=== PATIENT | female | born 1940 | race Caucasian/White ===

== ENCOUNTER 2018-07-27 12:37 | Outpatient (CLI) ==
--- NOTE | 2018-07-27 14:08 | DEXA ---
EXAM: Bone density HISTORY: Postmenopausal female who reports osteoporosis with calcium supplementation and previous le g fracture COMPARISON: None TECHNIQUE: Digital images of the thoracolumbar spine and left hip were provided and calculation of b one density was obtained. FINDINGS: Digital images demonstrate no compression deformities of the thoracolumbar spine. DEXA scan of the lumbar spine is of good quality. The total BMD equals 1.113 grams per square centimeter. T-score is - 0.6 and Z-score of 1.3 DEXA of the left hip was performed and of good quality. Total bone marrow density of 0.889 grams per square centimeter. T score is - 0.9 and Z-score of 1.0. Femoral neck demonstrates a T-score of - 1.7 IMPRESSION: Bone density of the hip and lumbar spine demonstrate focal femoral neck osteopenia in an otherwise normal bone density study by WHO criteria. FRAX calculation tool demonstrates 10-year probability of major osteoporotic fracture of 18.8% and hi p fracture risk of 4.4% T score greater than -1 is normal T score -1 to -2.5 is osteopenia T score less than - 2.5 is osteoporosis
== END 2018-07-27 12:38 | disposition home or self-care (01) ==
LOC: RAD 12:37
PROVIDERS: ATTEND Internal Medicine
DX: M81.0 Age-related osteoporosis without current pathological fracture (principal)

== ENCOUNTER 2018-09-18 14:00 | Outpatient (RCR) ==
--- NOTE | 2018-08-31 13:26 | RS.OPPTEV2 ---
Date of Note: 08/31/18 Visit #: 1 Number of visits approved by Insurance: n/a Date of Evaluation: 08/31/18 Payer Source: MEDICARE Surgery Performed?: Yes (R THR on 04/01/2018) Treatment Diagnosis: aftercare following total hip replacement, balance impaired , muscle weaknes History of Condition/Mechanism of Injury:: pt suffered a fall at her dtr's home in [facility] sustaining R hip fx on 03/31/18 and underwent THR on . Received PT in [place], and did received PT from home health when returned home to [place]. Prior Level of Function.....Patient was independent with: ADL's, Self Care, Caregiving, Ambulation/Mobility, Community Integration/Access Level of Function: prior to hip fx pt was independent with all ADL' s, and amb without AD and cared from adult daughter with special needs. Functional Limitations: Bending, Squatting, Ambulation, Community Access/ Integration Current Subjective/complaints:: pt states that she is hoping to get back to her prior level amb without AD and helping dtr when needed. Treatment Side (optional): Right *Precautions: n/a Medical History Medical History: Hypertension Surgical History: Hip Replacement (04/01/18) Smoking Status: Former smoker Hx Home Medications: lisinopril, amlodopine, atoravastatin Patient's Goals: be able to amb without cane, and be able to perform all normal household activities. Pain Assessment - Pain Description Pain Location: R hip Pain Description: Aching Current Pain Intensity: 1 Other Comments regarding Pain:: states usually pain does not get higher than 1/ 10 Functional Outcome Measure Dynamic Gait: 13 - G Codes & Severity Modifier G Codes & Modifier: n/a Source of G Code score: n/a Observation - Observation Posture: Forward Head, Rounded Shoulders, Increased Thoracic Kyphosis Handedness: Right Gait - Gait Pattern General Gait Pattern Observation: Antalgic Gait, Crouched Gait, Decrease Stride Lngth (R), Decrease Stride Lngth (L) Gait Comments: pt amb with straight cane with flexed posture, decreased step length. Gait speed 0.69 meters/sec. consistent with limited community ambulator General Range of Motion: BUE WFL's. BLE WFL's Muscle Strength: BUE 4/5. LLE 4+/5. RLE atleast 3/5 as noted by ROM, pt would not allow PT to MMT due to fear of pain, states it hurt the last time a PT did that. Hip ROM: Right WFL's Hip Muscle Strength: Left WFL's - Right Hip ROM Right Hip ROM Limitations: Soft Tissue Tightness, Pain, Muscle Weakness - Right Hip Strength Comments: pt would not allow MMT due to fear of pain. Palpation Palpation Findings: Tenderness Comments:: R LE Sensation - Sensation Right Upper Extremity: Intact/Normal Left Upper Extremity: Intact/Normal Right Lower Extremity: Intact/Normal Left Lower Extremity: Intact/Normal Balance - Sitting Balance Static Sitting Balance: Normal Dynamic Sitting Balance: Normal - Standing Balance Static Standing Balance: Good Dynamic Standing Balance: Fair - Comments Balance Assessment Comments: dyn gait index . Gait speed 0.69 meters/sec Interventions - Exercise/Activities/Manual Therapy Exercises/Activities: pt performed isometric hip add, resisted hip abd with green theraband, hip flex, Manual Therapy: n/a HOME EXERCISE PROGRAM: pt given written HEP including isometric hip add, resisted hip abd, seated hip flex. - Charges Timed Code Treatment Minutes: 51 Total Treatment Time: 61 Procedures billed for this date of service:: eval low, ex EVALUATION COMPLEXITY LEVEL EVALUATION COMPLEXITY LEVEL: HISTORY: Low, EXAM OF BODY SYSTEMS: Medium, CLINICAL PRESENTATION: Medium, CLINICAL DECISION MAKING: Low Assessment Assessment: pt presents with decreased balance and strength and requires use of AD for amb. Feel pt would benefit from skilled PT for therex for strengthening, balance, gait training without AD to improve functional mobility and decrease risk of falls. Patient Education: Activity Modification, Education of Plan of Care Rehab Potential: Good Short Term Goals Goal #1: pt independent with initial HEP Goal to be met by: 09/21/18 Goal #2: Improve dyn gait index score > 18/24 Goal to be met by: 09/21/18 Goal #3: Improve strength BLE 4 to 4+/5 Goal to be met by: 09/21/18 Nurse Practitioner Physicians Assistant Goals Goal #1: pt report ability to go for walks in community with her daughter Goal to be met by: 10/12/18 Goal #2: pt amb in dept without AD with no LOB Goal to be met by: 10/12/18 Goal #3: Improve gait speed to > 0.8 meters/sec consistent with community ambulator Goal to be met by: 10/12/18 Plan - Treatment to be Provided Procedures: Therapeutic Exercises, Therapeutic Activity, Manual Therapy, Patient Education Modalities: Cryotherapy, Hot Packs - Treatment Plan Frequency: 2-3x a week Duration: 6 weeks Dates of Nurse Practitioner Physicians Assistant Goals: 10/12/18 Expiration date of current Insurance Approval:: n/a - Treatment Code (1) Aftercare following hip joint replacement surgery Code(s): Z47.1 - AFTERCARE FOLLOWING JOINT REPLACEMENT SURGERY; Z96.649 - PRESENCE OF UNSPECIFIED ARTIFICIAL HIP JOINT Qualifiers: Laterality: right Qualified Code(s): Z47.1 - Aftercare following joint replacement surgery; Z96.641 - Presence of right artificial hip joint (2) Right hip pain Code(s): M25.551 - PAIN IN RIGHT HIP (3) Muscle weakness Code(s): M62.81 - MUSCLE WEAKNESS (GENERALIZED) (4) Gait difficulty Code(s): R26.9 - UNSPECIFIED ABNORMALITIES OF GAIT AND MOBILITY
--- NOTE | 2018-09-04 16:35 | RS.OPPTDN ---
Subjective Date of Note: 09/04/18 Visit #: 2 Number of visits approved by Insurance: [id number] Date of Evaluation: 08/31/18 Payer Source: MEDICARE Treatment Diagnosis: aftercare following total hip replacement, balance impaired , muscle weaknes Current Subjective/complaints:: Patient says she has soreness to the R thigh into the groin and along the incision (tender). Reports she has tried HEP and prefers to use her cane on the R side as this is what she is used to. *Precautions: n/a - Heat/Cryotherapy Treatment: Hot Pack (over the R hip and anterior thigh in supine x 15 mins) Interventions - Exercise/Activities/Manual Therapy Exercises/Activities: Patient receives gentle hamstring and heel cord stretching to the R LE. She begins ball squeezes, isometric hip abd in hooklying, hip abd with knee extended, SAQ 2#, DF with red tband, bilateral SAQ 2# and holding ball for ankle IV all 2x10. Hip flexion in hooklying x 5 limited range. Sitting for LAQ x 10 2#. Began education on diagnosis, anatomy, scar tissue massage, HEP review. Total minutes of Exercise: 25 Manual Therapy: n/a HOME EXERCISE PROGRAM: pt given written HEP including isometric hip add, resisted hip abd, seated hip flex. - Charges Timed Code Treatment Minutes: 25 Total Treatment Time: 40 Procedures billed for this date of service:: hp, ex2 Assessment: Patient amb to dept with SC used on the R side. She is able to donnell all beginning therex, but is tight with gentle HS and heel cord stretches. She should benefit from further progression of therex to the R LE to improve stability and pain. Patient Education: Education of diagnosis, Body/Joint mechanics, Home Exercise Program, Education of Plan of Care Patient demonstrates compliance with HEP?: Yes Short Term Goals Goal #1: pt independent with initial HEP Goal to be met by: 09/21/18 Progress towards Goal:: Progressing Goal #2: Improve dyn gait index score > 18/24 Goal to be met by: 09/21/18 Goal #3: Improve strength BLE 4 to 4+/5 Goal to be met by: 09/21/18 Gore Inserter Goals Goal #1: pt report ability to go for walks in community with her daughter Goal to be met by: 10/12/18 Goal #2: pt amb in dept without AD with no LOB Goal to be met by: 10/12/18 Goal #3: Improve gait speed to > 0.8 meters/sec consistent with community ambulator Goal to be met by: 10/12/18 Plan Dates of Care Home Goals: 10/12/18 Expiration date of current Insurance Approval:: 10/12/18 PLAN: Patient to continue with moist heat to the R LE and therex to strengthen.
--- NOTE | 2018-09-06 16:11 | RS.OPPTDN ---
Subjective Date of Note: 09/06/18 Visit #: 3 Number of visits approved by Insurance: Reassess at 10th Date of Evaluation: 08/31/18 Payer Source: MEDICARE Treatment Diagnosis: aftercare following total hip replacement, balance impaired , muscle weaknes Current Subjective/complaints:: Patient reports her R hip was sore after her session, but she anticipated some fatigue and soreness from beginning new exercises. *Precautions: n/a - Heat/Cryotherapy Treatment: Hot Pack (20 mins over the R hip and thigh in supine) Interventions - Exercise/Activities/Manual Therapy Exercises/Activities: Patient receives gentle hamstring and heel cord stretching to the R LE. She performs ball squeezes, isometric hip abd in hooklying, hip abd with knee extended, hip abd with green tband in hooklying, SAQ 2#, DF with green tband, bilateral SAQ 2# and holding ball for ankle IV all 2x10. Hip flexion in hooklying x 5 limited range. Returned to more gentle HS stretching, Sitting for LAQ x 10 2#. Continued with education on diagnosis, anatomy, HEP review. Total minutes of Exercise: 27 Manual Therapy: n/a HOME EXERCISE PROGRAM: pt given written HEP including isometric hip add, resisted hip abd, seated hip flex. - Charges Timed Code Treatment Minutes: 27 Total Treatment Time: 47 Procedures billed for this date of service:: hp, ex2 Assessment: Patient presents with admission of mild soreness and fatigue following initiation of exercises at previous session. She appears to be motivated and attentive to therex/activity to improve R LE strength. She demo moderate tightness to the hamstrings and piriformis today, but does improve with frequent stretching. Patient Education: Education of diagnosis, Body/Joint mechanics, Home Exercise Program Patient demonstrates compliance with HEP?: Yes Short Term Goals Goal #1: pt independent with initial HEP Goal to be met by: 09/21/18 Progress towards Goal:: Progressing Goal #2: Improve dyn gait index score > 18 Goal to be met by: 09/21/18 Goal #3: Improve strength BLE 4 to 4+/5 Goal to be met by: 09/21/18 Film Library Clerk Goals Goal #1: pt report ability to go for walks in community with her daughter Goal to be met by: 10/12/18 Goal #2: pt amb in dept without AD with no LOB Goal to be met by: 10/12/18 Goal #3: Improve gait speed to > 0.8 meters/sec consistent with community ambulator Goal to be met by: 10/12/18 Plan Dates of Group Home Goals: 10/12/18 Expiration date of current Insurance Approval:: 10/12/18 PLAN: Patient to continue with modalities and therex to the R LE
--- NOTE | 2018-09-11 15:24 | RS.OPPTDN ---
Subjective Date of Note: 09/11/18 Visit #: 4 Number of visits approved by Insurance: Reassess at 10th Date of Evaluation: 08/31/18 Payer Source: MEDICARE Treatment Diagnosis: aftercare following total hip replacement, balance impaired , muscle weaknes Current Subjective/complaints:: Patient c/o R sided back pain today. States she feels therapy is helping, but did notice today she is having more trouble with walking and felt her back mm's were tight. *Precautions: n/a - Heat/Cryotherapy Treatment: Hot Pack (over the R hip, LB, and groin x 15 mins supine) Interventions - Exercise/Activities/Manual Therapy Exercises/Activities: Patient receives gentle hamstring and heel cord stretching to the R LE. She performs ball squeezes, isometric hip abd in hooklying, hip abd with knee extended, hip abd with green tband in hooklying, SAQ 2#, DF with green tband, bilateral SAQ 2# and holding ball for ankle IV all 2x10. QS, Hip flexion in hooklying x 5 limited range. Returned to more gentle HS stretching, Supine for R hip flexor stretch x 25 sec's. Sitting for LAQ x 10 2#. Continued with education on diagnosis, anatomy, HEP review. Total minutes of Exercise: 38 Manual Therapy: n/a HOME EXERCISE PROGRAM: pt given written HEP including isometric hip add, resisted hip abd, seated hip flex. - Charges Timed Code Treatment Minutes: 38 Total Treatment Time: 53 Procedures billed for this date of service:: hp, ex2 Assessment: Patient with increased R sided back pain and increased tightness to the R HS and calf. She is able to perform all therex and new stretch well, but difficulty donnell HS stretching. She is performing HeP. Patient Education: Education of diagnosis, Home Exercise Program, Education of Plan of Care Patient demonstrates compliance with HEP?: Yes Short Term Goals Goal #1: pt independent with initial HEP Goal to be met by: 09/21/18 Progress towards Goal:: Progressing Goal #2: Improve dyn gait index score > 18/24 Goal to be met by: 09/21/18 Goal #3: Improve strength BLE 4 to 4+/5 Goal to be met by: 09/21/18 Progress towards Goal:: Progressing Audit Analyst Goals Goal #1: pt report ability to go for walks in community with her daughter Goal to be met by: 10/12/18 Goal #2: pt amb in dept without AD with no LOB Goal to be met by: 10/12/18 Goal #3: Improve gait speed to > 0.8 meters/sec consistent with community ambulator Goal to be met by: 10/12/18 Plan Dates of Audit Analyst Goals: 10/12/18 Expiration date of current Insurance Approval:: 10/12/18 PLAN: Continue BIW for treatment to the R hip to improve flexibility and strength.
--- NOTE | 2018-09-13 13:24 | RS.CXNS ---
Date of scheduled appointment: 09/13/18 Type: Cancel Reason for Cancel/NS: ill
--- NOTE | 2018-09-18 15:29 | RS.OPPTDN ---
Subjective Date of Note: 09/18/18 Visit #: 5 Number of visits approved by Insurance: 12 Date of Evaluation: 08/31/18 Payer Source: MEDICARE Treatment Diagnosis: aftercare following total hip replacement, balance impaired , muscle weaknes Current Subjective/complaints:: Patient says she has to cancel her next appt due to repeat MD visits and may not be able to come next week. She states her hip is getting stronger and is performing HEP. *Precautions: n/a - Heat/Cryotherapy Treatment: Hot Pack (15 mins to the R hip and groin in supine) Interventions - Exercise/Activities/Manual Therapy Exercises/Activities: Patient continues to receive gentle hamstring and heel cord stretching to the R LE. She performs ball squeezes, hip abd in hooklying with green tband, hip abd with knee extended, SAQ 2 1/2#, DF with green tband, bilateral SAQ 2# and holding ball for ankle IV all 2x10. QS, Hip flexion in hooklying x 5 limited range. Returned to more gentle HS stretching, Sitting for LAQ x 10 2#. Continued with education on diagnosis, anatomy, HEP review. Total minutes of Exercise: 25 Manual Therapy: n/a HOME EXERCISE PROGRAM: pt given written HEP including isometric hip add, resisted hip abd, seated hip flex. - Charges Timed Code Treatment Minutes: 25 Total Treatment Time: 40 Procedures billed for this date of service:: hp, ex2 Assessment: Mild soreness at the R hip to groin, which eases with heat and therex. She continues with very tight R hamstrings and heel cords that should improve with continued assisted stretching. Provided education for pt to perform at home as she may be with-holding therapy next week. Patient Education: Education of diagnosis, Home Exercise Program, Education of Plan of Care Patient demonstrates compliance with HEP?: Yes Short Term Goals Goal #1: pt independent with initial HEP Goal to be met by: 09/21/18 Progress towards Goal:: Progressing Goal #2: Improve dyn gait index score > 18/24 Goal to be met by: 09/21/18 Goal #3: Improve strength BLE 4 to 4+/5 Goal to be met by: 09/21/18 Progress towards Goal:: Progressing Pilot Can Router Goals Goal #1: pt report ability to go for walks in community with her daughter Goal to be met by: 10/12/18 Goal #2: pt amb in dept without AD with no LOB Goal to be met by: 10/12/18 Goal #3: Improve gait speed to > 0.8 meters/sec consistent with community ambulator Goal to be met by: 10/12/18 Plan Dates of Custodial Goals: 10/12/18 Expiration date of current Insurance Approval:: 10/12/18 PLAN: continue BIW for strengthening and flexibility to improve gait regarding the R hip.
== END 2018-09-18 23:59 ==
PROVIDERS: ATTEND Internal Medicine
DX: Z47.1 Aftercare following joint replacement surgery (principal); Z96.641 Presence of right artificial hip joint; M25.551 Pain in right hip; M62.81 Muscle weakness (generalized); R26.9 Unspecified abnormalities of gait and mobility

== ENCOUNTER 2018-10-11 14:00 | Outpatient (RCR) ==
--- NOTE | 2018-09-25 16:53 | RS.OPPTDN ---
Subjective Date of Note: 09/25/18 Visit #: 6 Number of visits approved by Insurance: REassess at 10th Date of Evaluation: 08/31/18 Payer Source: MEDICARE Treatment Diagnosis: aftercare following total hip replacement, balance impaired , muscle weaknes Current Subjective/complaints:: Patient says she is noticing improved strength and reports she was able to lift her R leg into her car without her having to help it up. She says she wants to get as much therapy as possible because she is an active person and does a lot of community/[employer] projects. *Precautions: n/a - Heat/Cryotherapy Treatment: Hot Pack (over the R hip/thigh/groin x 15 mins supine) Interventions - Exercise/Activities/Manual Therapy Exercises/Activities: Patient continues to receive gentle hamstring and heel cord stretching to the R LE. She performs ball squeezes, hip abd in hooklying with green tband, hip abd with knee extended, SAQ 2 1/2#, DF with green tband, bilateral SAQ 2# and holding ball for ankle IV all 2x10. QS, Hip flexion in hooklying x 5 limited range. Heel slides, active hip flexion (with much greater ease 3x5). Returned to more gentle HS stretching, Sitting for LAQ x 10 2#. Ended with stationary bike with prompts to perform and to switch for reverse and forward, assistance for pedals, on and off bike x 4 mins . Continued with education on diagnosis, anatomy, HEP review. Total minutes of Exercise: 31 Manual Therapy: n/a HOME EXERCISE PROGRAM: pt given written HEP including isometric hip add, resisted hip abd, seated hip flex. - Charges Timed Code Treatment Minutes: 31 Total Treatment Time: 46 Procedures billed for this date of service:: hp, ex2 Assessment: Patient able to donnell increased active hip flexion allowing her to lift her leg into the car without difficulty. She is also able to demo improved ease with all other therex demo progression to the bike as well. She amb with observably quicker speed without demo improper safety. Patient Education: Education of diagnosis, Body/Joint mechanics, Home Exercise Program, Home Safety, Activity Modification, Education of Plan of Care Patient demonstrates compliance with HEP?: Yes Short Term Goals Goal #1: pt independent with initial HEP Goal to be met by: 09/21/18 Progress towards Goal:: Progressing Goal #2: Improve dyn gait index score > 18/24 Goal to be met by: 09/21/18 Goal #3: Improve strength BLE 4 to 4+/5 Goal to be met by: 09/21/18 Progress towards Goal:: Progressing Sap Bods Developer Goals Goal #1: pt report ability to go for walks in community with her daughter Goal to be met by: 10/12/18 Goal #2: pt amb in dept without AD with no LOB Goal to be met by: 10/12/18 Goal #3: Improve gait speed to > 0.8 meters/sec consistent with community ambulator Goal to be met by: 10/12/18 Plan Dates of Prison Goals: 10/12/18 Expiration date of current Insurance Approval:: 10/12/18 PLAN: Continue BIW. Progress dynamic activities to amb over, around and other standing therex to improve strength and bal.
--- NOTE | 2018-09-27 15:42 | RS.OPPTDN ---
Subjective Date of Note: 09/27/18 Visit #: 7 Number of visits approved by Insurance: Reassess at 10th Date of Evaluation: 08/31/18 Payer Source: MEDICARE Treatment Diagnosis: aftercare following total hip replacement, balance impaired , muscle weaknes Current Subjective/complaints:: Patient says she was sore after her previous session with beginning bike, but says she is glad she is progressing. She asks many questions about more visits beyond current order, HEP, and state regs on PT after discussion with her daughter. *Precautions: n/a - Heat/Cryotherapy Treatment: Hot Pack (15 mins across the R hip and thigh in supine) Interventions - Exercise/Activities/Manual Therapy Exercises/Activities: Patient continues to receive gentle hamstring and heel cord stretching to the R LE. Patient needed to stop for a few mins due to having cramps into the L foot/toes. She performs ball squeezes, hip abd in hooklying with green tband, hip abd with knee extended, SAQ 2 1/2#, DF with green tband, bilateral SAQ 2# and holding ball for ankle IV all 2x10. Assisted SLR 2x5, QS, Hip flexion in hooklying 2 x 5 limited range. Heel slides. Returned to more gentle HS stretching, Sitting for LAQ x 10 2# and hip flexion no weight. Forward step board to extend the R knee, then step up/down using 1 hand rail for educ on proper sequencing x 5. Side step ups using the R LE to come just to full extension only. Ended with stationary bike with prompts to perform and to switch for reverse and forward, assistance for pedals , on and off bike x 4 mins . Continued with education on diagnosis, anatomy, HEP review. Provided handout for HEP and discussion had on all with letting her know how many visits remained. Total minutes of Exercise: 38 Manual Therapy: n/a HOME EXERCISE PROGRAM: pt given written HEP including isometric hip add, resisted hip abd, seated hip flex. - Charges Timed Code Treatment Minutes: 38 Total Treatment Time: 53 Procedures billed for this date of service:: hp, ex3 Assessment: Patient needed rest time today to allow spasms in the uninvolved LE (foot/toes) to calm in order to perform exercises to the R LE. Lengthy discussions continue about PT indications, goals, insurance, and ethics. Patient is able to perform Active hip flexion with knee bent much easier and with less soreness. She is able to step up on mini step board with mild soreness, but correctly. Rupinder changes from R UE to L UE for AD even with correction and education. She is progressing well with stationary bike and all resisted therex with just general mm fatigue. Added therex given for home today. She appears to have increased tightness to the R HS today, but should ease if she is able to perform this regularly at home also. Patient Education: Education of diagnosis, Body/Joint mechanics, Home Exercise Program, Home Safety, Education of Plan of Care Patient demonstrates compliance with HEP?: Yes (Prov handouts today, previously verb ea ) Short Term Goals Goal #1: pt independent with initial HEP Goal to be met by: 09/21/18 Progress towards Goal:: Progressing Goal #2: Improve dyn gait index score > 18/24 Goal to be met by: 09/21/18 Goal #3: Improve strength BLE 4 to 4+/5 Goal to be met by: 09/21/18 Progress towards Goal:: Progressing Half-Way Goals Goal #1: pt report ability to go for walks in community with her daughter Goal to be met by: 10/12/18 Goal #2: pt amb in dept without AD with no LOB Goal to be met by: 10/12/18 Goal #3: Improve gait speed to > 0.8 meters/sec consistent with community ambulator Goal to be met by: 10/12/18 Plan Dates of Half-Way Goals: 10/12/18 Expiration date of current Insurance Approval:: 10/12/18 PLAN: Patient to continue BIW for therex to strengthen the R LE
--- NOTE | 2018-10-01 13:30 | RS.CXNS ---
Date of scheduled appointment: 10/02/18 Type: Cancel (Has appt with Dr. Kraft this time, offered several other appts)
--- NOTE | 2018-10-08 16:28 | RS.OPPTDN ---
Subjective Date of Note: 10/08/18 Visit #: 8 Number of visits approved by Insurance: 18 Date of Evaluation: 08/31/18 Payer Source: MEDICARE Treatment Diagnosis: aftercare following total hip replacement, balance impaired , muscle weaknes *Precautions: n/a Pain Assessment - Pain Description Pain Location: R hip Pain Description: Aching Current Pain Intensity: none Worst Pain Intensity: 1/10 Other Comments regarding Pain:: No pain at rest and minimal pain with activity - Heat/Cryotherapy Treatment: Hot Pack Comments:: Hot pack on R hip for 15 minutes, pt supine Interventions - Exercise/Activities/Manual Therapy Exercises/Activities: Ther ex in supine or hook lying to lissy LEs: ball squeezes x10, hip abd in hooklying with green tband 4x5, SAQ L LE 2 1/2# ad R LE 2# for 2x10 reps, R SAQ 2.5# and L SAQ 2#, RROM lissy SLR 2x10 (R LE 2# and L LE 2.5# ), RROM Heel slides 2x10(R LE 2# and L LE 2.5#). Sitting for LAQ 2x10 (R LE 2# and L LE 2.5#) Ended with stationary bike with prompts to switch for reverse and forward, assistance for pedals, on and off bike x 5 mins . Continued with education on anatomy, HEP review. Manual Therapy: n/a HOME EXERCISE PROGRAM: pt given written HEP including isometric hip add, resisted hip abd, seated hip flex. - Objective Findings Observations,measurements,etc.: Increased repetitions and resistance to some exercises this date - Charges Timed Code Treatment Minutes: 45 Total Treatment Time: 53 Procedures billed for this date of service:: EX 2, HP 1 Assessment: Patient with increased strength and able to complete increased repetitions with weight increased for some exercises. Pain decreased. Short Term Goals Goal #1: pt independent with initial HEP Goal to be met by: 09/21/18 Progress towards Goal:: Progressing Goal #2: Improve dyn gait index score > 18/24 Goal to be met by: 09/21/18 Goal #3: Improve strength BLE 4 to 4+/5 Goal to be met by: 09/21/18 Progress towards Goal:: Progressing [employer] Control Room Operator Goals Goal #1: pt report ability to go for walks in community with her daughter Goal to be met by: 10/12/18 Goal #2: pt amb in dept without AD with no LOB Goal to be met by: 10/12/18 Goal #3: Improve gait speed to > 0.8 meters/sec consistent with community ambulator Goal to be met by: 10/12/18 Plan Dates of Power House Control Room Operator Goals: 10/12/18 Expiration date of current Insurance Approval:: 10/12/18 PLAN: continue with POC
--- NOTE | 2018-10-09 15:57 | RS.OPPTDN ---
Subjective Date of Note: 10/09/18 Visit #: 10 Number of visits approved by Insurance: Reassess today Date of Evaluation: 08/31/18 Payer Source: MEDICARE Treatment Diagnosis: aftercare following total hip replacement, balance impaired , muscle weaknes Current Subjective/complaints:: Patient says that she was quite sore after her previous session. She says that she feels she is getting better with therapy and wants to continue with more orders. States she is able to lift her R leg up enough to get it into the car easier and to use her steps better ( alternately stepping instead of step to). *Precautions: n/a Pain Assessment - Pain Description Pain Location: C/o LBP and bilateral LE soreness related to exercising both LEs previous session - Heat/Cryotherapy Treatment: Hot Pack (to LB and over the R hip and thigh supine x 15 mins) Interventions - Exercise/Activities/Manual Therapy Exercises/Activities: Patient continues to receive gentle hamstring and heel cord stretching to the R LE. She appears to donnell stretching slightly better showing improved flexibility today. She begins with: QS, heel slides with 1#, ball squeezes and hip abd in hooklying with green tband, hip abd with knee extended, SAQ 2 1/2#, DF with green tband, bilateral SAQ 2 1/2# and holding ball for ankle IV all 2x10. Assisted SLR 2x8, hip flexion in hooklying 2 x 5 limited range. Assisted with LE Functional Scale and performed activities assoc with Dynamic Gait Index to score. Total minutes of Exercise: 46 Manual Therapy: n/a HOME EXERCISE PROGRAM: pt given written HEP including isometric hip add, resisted hip abd, seated hip flex. - Charges Timed Code Treatment Minutes: 46 Total Treatment Time: 70 Procedures billed for this date of service:: neuro2, ex2, hp Assessment: Lengthy discussion of progress and limitations/goals according to Dynamic Gait and LE Functional Scores and answered patient's questions. She demo improvement with both tests and improved ease with all resisted therex showing strength increase as well. She has admitted functional progress with stairs at home and getting in/out car, sittinging longer, and rolling over in bed. Patient would benefit from extension of therapy to possibly amb without AD and improve dynamic bal. Patient Education: Education of diagnosis, Body/Joint mechanics, Home Exercise Program, Home Safety, Education of Plan of Care Patient demonstrates compliance with HEP?: Yes Short Term Goals Goal #1: pt independent with initial HEP Goal to be met by: 09/21/18 Progress towards Goal:: Met Goal #2: Improve dyn gait index score > Goal to be met by: 09/21/18 Progress towards Goal:: Progressing Comments:: Goal #3: Improve strength BLE 4 to 4+/5 Goal to be met by: 09/21/18 Progress towards Goal:: Met Patient Services Rep Goals Goal #1: pt report ability to go for walks in community with her daughter Goal to be met by: 10/12/18 Comments: Patient says she no longer needs to do this Goal #2: pt amb in dept without AD with no LOB Goal to be met by: 10/12/18 Progress towards goal: Progressing Comments: Amb only very short distances without cane Goal #3: Improve gait speed to > 0.8 meters/sec consistent with community ambulator Goal to be met by: 10/12/18 Comments: Will assess Plan Dates of Assisted Goals: 10/12/18 Expiration date of current Insurance Approval:: 10/12/18 PLAN: Patient has 1 session left this week then POC will Monday. She may benefit from extending therapy to achieve LTG
--- NOTE | 2018-10-09 16:04 | RS.OPPTDN ---
Subjective Date of Note: 10/05/18 Visit #: 8 Number of visits approved by Insurance: Reassess at 10 Date of Evaluation: 08/31/18 Payer Source: MEDICARE Treatment Diagnosis: aftercare following total hip replacement, balance impaired , muscle weaknes Current Subjective/complaints:: Patient says she is gaining strength to the R leg and is hopeful to gain more so that she can get away from her cane. *Precautions: n/a Interventions - Exercise/Activities/Manual Therapy Exercises/Activities: Patient continues to receive gentle hamstring and heel cord stretching to the R LE. Patient needed to stop for a few mins due to having cramps into the L foot/toes. She performs ball squeezes, hip abd in hooklying with green tband, hip abd with knee extended, SAQ 2 1/2#, DF with green tband, bilateral SAQ 2# and holding ball for ankle IV all 2x10. Assisted SLR 2x5, QS, Hip flexion in hooklying 2 x 5 limited range. Heel slides. Returned to more gentle HS stretching, Sitting for LAQ x 10 2# and hip flexion no weight. Forward step board to extend the R knee, then step up/down using 1 hand rail for educ on proper sequencing x 5. Side step ups using the R LE to come just to full extension only. Patient steps over various objects on the floor and amb around obstacles as well while using cane and CGA/ Supervision. Ended with stationary bike with prompts to perform and to switch for reverse and forward, assistance for pedals, on and off bike x 4 mins . Continued with education on diagnosis, anatomy, HEP review. Provided handout for HEP and discussion had on all with letting her know how many visits remained. Total minutes of Exercise: 43 Manual Therapy: n/a HOME EXERCISE PROGRAM: pt given written HEP including isometric hip add, resisted hip abd, seated hip flex. - Charges Timed Code Treatment Minutes: 43 Total Treatment Time: 43 Procedures billed for this date of service:: ex2, neuro1 Assessment: Patient progressing with active hip flexion in supine, standing, and sitting allowing her to get into her car better. She is only having intermittent soreness to the R thigh and general mm fatigue due to therex. She is able to maintain good bal while using SC around and over objects on floor with slowing down and stopping before stepping over and slowing down when walking around items. She demo supine to sit without requiring the amount of assistance as previous week. She appears more confident in her progress today and is performing HEP daily. Patient Education: Home Safety, Education of Plan of Care Patient demonstrates compliance with HEP?: Yes Short Term Goals Goal #1: pt independent with initial HEP Goal to be met by: 09/21/18 Progress towards Goal:: Progressing Goal #2: Improve dyn gait index score > 18/24 Goal to be met by: 09/21/18 Comments:: Will assess on Goal #3: Improve strength BLE 4 to 4+/5 Goal to be met by: 09/21/18 Progress towards Goal:: Progressing Therapeutic Specialist Goals Goal #1: pt report ability to go for walks in community with her daughter Goal to be met by: 10/12/18 (pt no longer desires this to happen) Goal #2: pt amb in dept without AD with no LOB Goal to be met by: 10/12/18 Goal #3: Improve gait speed to > 0.8 meters/sec consistent with community ambulator Goal to be met by: 10/12/18 Plan Dates of Therapeutic Specialist Goals: 10/12/18 Expiration date of current Insurance Approval:: 10/12/18 PLAN: Patient to continue BIW to complete POC. She will be reassessed next week.
--- NOTE | 2018-10-11 16:26 | RS.OPPTDN ---
Subjective Date of Note: 10/11/18 Visit #: 11 Number of visits approved by Insurance: - Date of Evaluation: 08/31/18 Payer Source: MEDICARE Treatment Diagnosis: aftercare following total hip replacement, balance impaired , muscle weaknes Current Subjective/complaints:: Patient says her back still hurts from her Monday session. She says she has not hurt like this in "some time." She says she is most happy about being able to have enough strength and flexibility to lift the R LE up into her car and stepping up onto her stairs. *Precautions: n/a - Heat/Cryotherapy Treatment: Hot Pack (mid to low back and over the R hip in supine x 15 mins) Interventions - Exercise/Activities/Manual Therapy Exercises/Activities: Patient continues to receive gentle hamstring and heel cord stretching to the R LE. She performs ball squeezes, isometric hip abd in hooklying, isometric hip add, QS, SAQ 2 1/2#, heel slides, DF with green tband , ankle IV all 2x10. Assisted SLR 2x8, Hip flexion in hooklying 2 x 5 limited range. Isometric R hip flexion x 5. Returned to more gentle HS stretching, Sitting for LAQ x 10 2# and hip flexion no weight. Ended with stationary bike x 5 mins forward/retro with cues to switch position, assistance on/off device, and chair/pedal placement. Total minutes of Exercise: 34 Manual Therapy: n/a HOME EXERCISE PROGRAM: pt given written HEP including isometric hip add, resisted hip abd, seated hip flex. - Charges Timed Code Treatment Minutes: 34 Total Treatment Time: 49 Procedures billed for this date of service:: hp, ex2 Assessment: Patient presents ambulating without AD to and from our dept. No apparent difficulty or increased pain during so. She intermittently holds onto handrail. She is able to perform all therex with less discomfort now compared to previous session. Patient Education: Education of diagnosis, Body/Joint mechanics, Home Exercise Program, Education of Plan of Care Patient demonstrates compliance with HEP?: Yes Short Term Goals Goal #1: pt independent with initial HEP Goal to be met by: 09/21/18 Progress towards Goal:: Progressing Goal #2: Improve dyn gait index score > Goal to be met by: 09/21/18 Progress towards Goal:: Progressing Comments:: Goal #3: Improve strength BLE 4 to 4+/5 Goal to be met by: 09/21/18 Progress towards Goal:: Partially Met Comments:: with quads and hamstrings, 4-/5 for hip flexors Positive Printer Operator Goals Goal #1: pt report ability to go for walks in community with her daughter Goal to be met by: 10/12/18 (pt no longer desires this to happen) Goal #2: pt amb in dept without AD with no LOB Goal to be met by: 10/12/18 Progress towards goal: Progressing Comments: Patient ambulates to/from our dept without difficulty Goal #3: Improve gait speed to > 0.8 meters/sec consistent with community ambulator Goal to be met by: 10/12/18 Progress towards goal: Progressing Plan Dates of Jail Goals: 10/12/18 Expiration date of current Insurance Approval:: 10/12/18 PLAN: Patient has completed original order and dates tomorrow. Patient will be gone until middle or latter portion of next week. She is hopeful to continue with further orders once PT reassesses.
--- NOTE | 2018-10-17 11:32 | RS.PTSUM ---
Progress Note/Summary Date of Note: 10/09/18 Date of Evaluation: 08/31/18 Number of Visits: 10 Number of visits approved by Insurance: n/a Reporting Period for this Progress Note: 08/31/18-10/09/18 Current Complaints/Gains: pt states that she can notice improvement with sitting longer and bed mobility. States she can get into her car without assistance of UE's without pain. Objective Measurements/Presentation: LE functional scale improved from 25/80 or 69% to 38/80 or 53%. pt has also improved with dyn gait index on eval and currently . pt is able to ascend/descend 5 steps alternately with 1 handrail. Improved R hip strength 4/5. G Codes: n/a Source of G Code Score: n/a - Short Term Goals Goal #1: pt independent with initial HEP Goal to be met by: 09/21/18 Progress towards Goal:: Met Goal #2: Improve dyn gait index score > Goal to be met by: 10/26/18 () Progress towards Goal:: Progressing Goal #3: Improve strength BLE 4 to 4+/5 Goal to be met by: 10/26/18 (R hip 4/5) Progress towards Goal:: Partially Met - Mcfp Goals Goal #1: pt report ability to go for walks in community with her daughter Goal to be met by: 10/12/18 (goal dc) Goal #2: pt amb in dept without AD with no LOB Goal to be met by: 11/02/18 (continues to amb with cane) Progress towards goal: Partially Met Goal #3: Improve gait speed to > 0.8 meters/sec consistent with community ambulator Goal to be met by: 11/02/18 Progress towards goal: Progressing Goal #4: pt amb functional distances with cane independently Goal to be met by: 11/02/18 - Assessment Assessment of Improvement/Progress: pt has made progress with strength as well as balance and gait. Feel pt may benefit from continued PT with emphasis on HEP and gait safety and balance. Summary: Patient has made progress towards goals., Patient demonstrates potential to gain increased function with therapy - Plan Plan: Continue Plan of Care Frequency: 2 X week Duration: 3 weeks (however pt out of town 10/15-10/19/18) Dates of Department Clerk Goals: 6/14/19 Expiration date of current Insurance Approval:: n/a
== END 2018-10-19 23:59 ==
PROVIDERS: ATTEND Internal Medicine
DX: Z47.1 Aftercare following joint replacement surgery (principal); Z96.641 Presence of right artificial hip joint; M25.551 Pain in right hip; M62.81 Muscle weakness (generalized); R26.9 Unspecified abnormalities of gait and mobility